=== PATIENT | female | born 1955 | race Hispanic/Latino ===

== ENCOUNTER → 2023-04-21 | Outpatient (CLI) | payer OTHER ==
[~2023-04-21] MED LIST: AMLO-258 PO; ATOR10 PO; CARV6.25 PO; GLIP-162 PO
== END | disposition home or self-care (01) ==
LOC: EDSEX → RAH 12:52
PROVIDERS: ATTEND Internal Medicine
DX: M79.605 Pain in left leg (principal); R59.0 Localized enlarged lymph nodes
CPT/HCPCS: 93971